=== PATIENT | female | born 1970 | race Caucasian/White ===

== ENCOUNTER 2022-04-23 09:05 | Emergency (ER) | payer OTHER ==
[~2022-04-23] VITALS: Ht 149.9 cm; Wt 66.0 kg
[2022-04-23 09:25] VITALS: BP 101/52
[2022-04-23] MEDS ORDERED: HYDR-3965 PO (10:41)
[2022-04-23] MEDS ORDERED: ONDA4TAB12 PO (10:41)
== END 2022-04-23 11:16 | disposition home or self-care (01) ==
LOC: ER 09:06
DX: M25.561 Pain in right knee (principal); M25.461 Effusion, right knee; W19.XXXA Unspecified fall, initial encounter; Y93.89 Activity, other specified; Y92.89 Other specified places as the place of occurrence of the external cause; Y99.8 Other external cause status
CPT/HCPCS: 73564; 99284; A6449

== ENCOUNTER 2022-08-19 09:34 | Inpatient (IN) | payer MEDICAID ==
[~2022-08-19] VITALS: Ht 149.9 cm; Wt 56.0 kg
[~2022-08-19 09:34] MED LIST: ARIP2TAB20 PO; BUSP10TA3 PO; CHOL100046 PO; CYAN-34 PO; ESCI-8 PO; GABA300C PO; LACT1CAP26 PO; QUET400T13 PO
[2022-08-19 10:04] LABS: BASOPHILS # (AUTO) 0.1 X10'3 (0-0.2); BASOPHILS % (AUTO) 0.5 % (0-1); EOSINOPHILS # (AUTO) 0.1 X10'3 (0-0.9); EOSINOPHILS % (AUTO) 0.5 % (0-6); HEMATOCRIT 41.3 % (35.0-45.0); LYMPHOCYTES # (AUTO) 3.2 X10'3 (1.1-4.8); LYMPHOCYTES % (AUTO) 25.9 % (21-51); MEAN CORPUSCULAR HEMOGLOBIN 32.9 PG (27.0-31.0); MEAN CORPUSCULAR HGB CONC 33.9 g/dL (33.0-36.5); MEAN CORPUSCULAR VOLUME 96.8 FL (78-98); MEAN PLATELET VOLUME 7.1 FL (7.4-10.4); MONOCYTES # (AUTO) 0.8 X10'3 (0-0.9); MONOCYTES % (AUTO) 6.7 % (2-12); NEUTROPHILS # (AUTO) 8.2 X10'3 (1.8-7.7); NEUTROPHILS % (AUTO) 66.4 % (42-75); PLATELET COUNT 596 X10'3 (140-440); RED BLOOD COUNT 4.27 X10'6 (4.20-5.60); RED CELL DISTRIBUTION WIDTH 13.6 % (11.5-14.5); WHITE BLOOD COUNT 12.3 X10'3 (4.5-11.0)
[2022-08-19 11:12] LABS: ALANINE AMINOTRANSFERASE 26 U/L (12-78); ALBUMIN 2.7 G/DL (3.4-5.0); ALBUMIN/GLOBULIN RATIO 0.6 (1.1-1.5); ALKALINE PHOSPHATASE 122 IU/L (46-116); ANION GAP 12 (8-16); ASPARTATE AMINO TRANSFERASE 24 U/L (10-37); BILIRUBIN,TOTAL 0.3 MG/DL (0.1-1.0); BLOOD UREA NITROGEN 7 MG/DL (7-18); BUN/CREATININE RATIO 4.6 (10.0-20.0); CALCIUM 8.7 MG/DL (8.5-10.1); CHLORIDE 102 MMOL/L (99-107); CREATININE 1.52 MG/DL (0.40-0.90); GLUCOSE 182 MG/DL (70-104); MAGNESIUM 1.8 MG/DL (1.5-2.4); SODIUM 139 MMOL/L (135-145); TOTAL CARBON DIOXIDE 24.7 MMOL/L (24-32); eGFR 36 ML/MIN
[2022-08-19 11:27] LABS: POTASSIUM 1.9 MMOL/L (3.5-5.1)
[2022-08-19] MEDS ORDERED: tamsulosin 0.4mg capsule PO ONE (11:40)
[2022-08-19] MEDS ORDERED: phenazopyridine 100mg tablet PO ONE (11:40)
[2022-08-19] MEDS ORDERED: potassium Cl 20 mEq SR tablet PO ONE (11:40)
[2022-08-19] MEDS ORDERED: potassium Cl 40MEQ/1/2NS 520ml 520 ML IV ONE (11:40)
[2022-08-19] MEDS ORDERED: acetaminophen 325mg tablet PO ONE (12:35)
[2022-08-19] MEDS ORDERED: morphine 2 MG/ML inj. syringe IV PRN ×2 (14:20)
[2022-08-19] MEDS ORDERED: magnesium Cl slow-release 64mg tablet PO PRN (14:20)
[2022-08-19] MEDS ORDERED: ondansetron/PF 4mg/2ml inj IV PRN (14:20)
[2022-08-19] MEDS ORDERED: HYDROcodone/acetaminophen 10/325mg tab PO PRN (14:20)
[2022-08-19] MEDS ORDERED: magnesium hydroxide 30ml (MOM) UD suspension PO PRN (14:20)
[2022-08-19] MEDS ORDERED: magnesium 4gm in 100ml NS 100 ML IV PRN (14:20)
[2022-08-19] MEDS ORDERED: magnesium 2GM in 50ml NS 50 ML IV PRN (14:20)
[2022-08-19] MEDS ORDERED: potassium Cl 40MEQ/1/2NS 520ml 520 ML IV PRN (14:20)
[2022-08-19] MEDS ORDERED: mag hydrox/Alum hydrox/simeth 30ml oral suspension PO PRN (14:20)
[2022-08-19] MEDS ORDERED: acetaminophen 325mg tablet PO PRN ×2 (14:20)
[2022-08-19] MEDS: potassium Cl 20mEq in NS 1,000 ML IV SCH (16:25)
--- NOTE | 2022-08-19 16:33 | NUR ---
AMBUALTED TO BR WITH STEADY GAIT,
[2022-08-19 17:00] LABS: CLARITY,URINE SLIGHTLY CLOUDY (Clear); COLOR,URINE YELLOW (Yellow); GLUCOSE, URINE NEGATIVE (Neg); KETONES,URINE NEGATIVE (Neg); LEUKOCYTE ESTERASE ,URINE NEGATIVE (Neg); NITRITES, URINE NEGATIVE (Neg); OCCULT BLOOD,URINE TRACE-INTACT (Neg); PH,URINE 6.5 (4.8-8.0); PROTEIN,URINE NEGATIVE (Neg); UROBILINOGEN,URINE 0.2 E.U/dL (0.2-1.0)
[2022-08-19] MEDS: potassium Cl 20 mEq SR tablet PO PRN ×2 (17:30→21:08)
[2022-08-19 17:38] LABS: UA COLLECTION TYPE NON-SPECIFIED
[2022-08-19 17:39] LABS: BACTERIA,URINE 1+ /HPF (Neg); HYALINE CASTS >30 /LPF (NEGATIVE); RBC,URINE 0-2 /HPF (0-2); SQUAMOUS EPITHELIAL CELL,UR MANY /LPF (FEW); WBC,URINE 0-4 /HPF (0-4)
--- NOTE | 2022-08-19 18:15 | NUR ---
TO CT VIA WC
[2022-08-19] MEDS: K and/or MAG REPLACEMENT MC SCH (20:00)
[2022-08-19] MEDS: docusate sod 100mg capsule PO SCH (20:00)
--- NOTE | 2022-08-19 20:43 | NUR ---
AMBULATED TO BR WITH STEADY GAIT
[2022-08-19] MEDS: HYDROcodone/acetaminophen 5mg/325mg tablet PO PRN (21:07)
[2022-08-19] MEDS: quetiapine 100mg tablet PO SCH (21:08)
[2022-08-19] MEDS: gabapentin 300mg capsule PO SCH (21:09)
[2022-08-20] MEDS: potassium Cl 20mEq in NS 1,000 ML IV SCH ×3 (00:20→20:16)
[2022-08-20] MEDS: HYDROcodone/acetaminophen 5mg/325mg tablet PO PRN ×3 (01:43→17:28)
--- NOTE | 2022-08-20 04:24 | NUR ---
Patient in room ED 1. I have received report from ARNALDO Plaza and had the opportunity to ask questions and assume patient care.
[2022-08-20 04:44] LABS: ALBUMIN 2.2 G/DL (3.4-5.0); ANION GAP 9 (8-16); BLOOD UREA NITROGEN 8 MG/DL (7-18); BUN/CREATININE RATIO 7.1 (10.0-20.0); CALCIUM 7.7 MG/DL (8.5-10.1); CHLORIDE 110 MMOL/L (99-107); CREATININE 1.12 MG/DL (0.40-0.90); GLUCOSE 82 MG/DL (70-104); POTASSIUM 3.2 MMOL/L (3.5-5.1); SODIUM 142 MMOL/L (135-145); TOTAL CARBON DIOXIDE 22.7 MMOL/L (24-32); eGFR 51 ML/MIN
[2022-08-20 04:53] VITALS: BP 108/67
--- NOTE | 2022-08-20 06:35 | NUR ---
Problems reprioritized. Patient report given, questions answered & plan of care reviewed with ARNALDO Castillo .
[2022-08-20] MEDS: potassium Cl 20 mEq SR tablet PO PRN ×3 (08:00→16:15)
[2022-08-20] MEDS: K and/or MAG REPLACEMENT MC SCH ×2 (08:00→20:00)
[2022-08-20] MEDS ORDERED: ESCITALOPRAM OXALATE 5 MG TABLET PO SCH (08:00)
[2022-08-20] MEDS: busPIRone 5mg tablet PO SCH (08:01)
[2022-08-20] MEDS: cyanocobalamin 500mcg tablet PO SCH (08:01)
[2022-08-20] MEDS: docusate sod 100mg capsule PO SCH ×2 (08:01→20:00)
[2022-08-20] MEDS: gabapentin 300mg capsule PO SCH (08:01)
[2022-08-20 10:00] VITALS: BP 104/53
[2022-08-20 10:06] LABS: C DIFF SPECIMEN=DIARRHEA? ACCEPTABLE; C DIFFICILE TOXINS A&B NEGATIVE (Neg)
[2022-08-20 12:26] LABS: BASOPHILS % (AUTO) 0 % (0-1); EOSINOPHILS # (AUTO) 0.4 X10'3 (0-0.9); EOSINOPHILS % (AUTO) 4.3 % (0-6); HEMATOCRIT 35.3 % (35.0-45.0); HEMOGLOBIN 11.4 g/dl (12.0-16.0); LYMPHOCYTES % (AUTO) 41.4 % (21-51); MEAN CORPUSCULAR HEMOGLOBIN 32.6 PG (27.0-31.0); MEAN CORPUSCULAR HGB CONC 32.2 g/dL (33.0-36.5); MEAN CORPUSCULAR VOLUME 101.2 FL (78-98); MEAN PLATELET VOLUME 7.5 FL (7.4-10.4); MONOCYTES # (AUTO) 0.4 X10'3 (0-0.9); MONOCYTES % (AUTO) 3.7 % (2-12); NEUTROPHILS # (AUTO) 4.9 X10'3 (1.8-7.7); NEUTROPHILS % (AUTO) 50.6 % (42-75); PLATELET COUNT 463 X10'3 (140-440); RED BLOOD COUNT 3.48 X10'6 (4.20-5.60); RED CELL DISTRIBUTION WIDTH 14.3 % (11.5-14.5); WHITE BLOOD COUNT 9.6 X10'3 (4.5-11.0)
[2022-08-20 14:00] VITALS: BP 110/60
[2022-08-20 18:00] VITALS: BP 104/53
[2022-08-20] MEDS: gabapentin 100mg capsule PO SCH (20:13)
[2022-08-20] MEDS: quetiapine 100mg tablet PO SCH (20:14)
[2022-08-20 21:11] LABS: CHLORIDE,URINE RANDOM 111 MEQ/L; SODIUM,URINE RANDOM 61 MEQ/L
[2022-08-20 22:00] VITALS: BP 112/48
[2022-08-21] MEDS: potassium Cl 20mEq in NS 1,000 ML IV SCH ×2 (00:12→08:15)
[2022-08-21 02:00] VITALS: BP 101/54
--- NOTE | 2022-08-21 05:59 | NUR ---
Problems reprioritized. Patient report given, questions answered & plan of care reviewed with Miley MCINTOSH.
--- NOTE | 2022-08-21 06:39 | NUR ---
I agree with the physical assessment
--- NOTE | 2022-08-21 06:39 | NUR ---
Problems reprioritized. Patient report given, questions answered & plan of care reviewed with ARNALDO Trent.
[2022-08-21 06:49] LABS: ANION GAP 9 (8-16); BLOOD UREA NITROGEN 8 MG/DL (7-18); BUN/CREATININE RATIO 8.6 (10.0-20.0); CALCIUM 7.5 MG/DL (8.5-10.1); CHLORIDE 115 MMOL/L (99-107); CREATININE 0.93 MG/DL (0.40-0.90); GLUCOSE 85 MG/DL (70-104); MAGNESIUM 1.7 MG/DL (1.5-2.4); POTASSIUM 3.6 MMOL/L (3.5-5.1); SODIUM 144 MMOL/L (135-145); TOTAL CARBON DIOXIDE 19.7 MMOL/L (24-32); eGFR 63 ML/MIN
[2022-08-21 07:00] VITALS: BP 113/53
--- NOTE | 2022-08-21 08:05 | NUR ---
24 hour urine collection in progress Addendum: 08/21/22 at 0806 by Miley Cardoso RN Amended: Links added.
[2022-08-21] MEDS: K and/or MAG REPLACEMENT MC SCH (08:12)
[2022-08-21] MEDS: cyanocobalamin 500mcg tablet PO SCH (08:15)
[2022-08-21] MEDS: docusate sod 100mg capsule PO SCH (08:15)
[2022-08-21] MEDS: gabapentin 100mg capsule PO SCH (08:15)
[2022-08-21] MEDS: busPIRone 5mg tablet PO SCH (08:15)
[2022-08-21] MEDS ORDERED: GABA-530 PO (09:58)
--- NOTE | 2022-08-21 10:54 | NUR ---
PAGER ID: [phone] MESSAGE: [phone] Manisha Saavedra Do you want the 24hour urine stopped and patient discharged? [phone] Miley
== END 2022-08-21 11:15 | disposition home or self-care (01) | DRG 425 ==
LOC: ER 09:34 → ED HOLD 14:22 → EDBEDREQ 22:45 → ORTHO 4S 08-20 04:44
PROVIDERS: ADMIT Internal Medicine; ATTEND Internal Medicine
DX: E87.6 Hypokalemia (principal); N17.9 Acute kidney failure, unspecified; F10.90 Alcohol use, unspecified, uncomplicated; F31.9 Bipolar disorder, unspecified; F41.9 Anxiety disorder, unspecified; G47.00 Insomnia, unspecified; K58.0 Irritable bowel syndrome with diarrhea; M79.7 Fibromyalgia; N18.9 Chronic kidney disease, unspecified; Z87.891 Personal history of nicotine dependence; Z90.49 Acquired absence of other specified parts of digestive tract; Z79.899 Other long term (current) drug therapy; Z83.3 Family history of diabetes mellitus; Z82.49 Family history of ischemic heart disease and other diseases of the circulatory system
CPT/HCPCS: 36415; 74176; 80048; 80053; 81001; 82436; 83735; 84132; 84133; 84300; 85025; 85651; 87081; 87324; 87449; 96365; 99285; G0378; J2405; J3480

== ENCOUNTER 2022-12-11 10:59 | Emergency (ER) | payer MEDICAID ==
[~2022-12-11] VITALS: Ht 152.4 cm; Wt 60.5 kg
[~2022-12-11 10:59] MED LIST changes: -ARIP2TAB20 PO; -ESCI-8 PO; +GABA-530 PO; -GABA300C PO; -LACT1CAP26 PO
[2022-12-11 11:19] VITALS: TEMP 97.1
[2022-12-11 11:58] LABS: BASOPHILS # (AUTO) 0.1 X10'3 (0-0.2); BASOPHILS % (AUTO) 0.4 % (0-1); EOSINOPHILS # (AUTO) 0.1 X10'3 (0-0.9); EOSINOPHILS % (AUTO) 0.4 % (0-6); HEMATOCRIT 45.6 % (35.0-45.0); HEMOGLOBIN 15.3 g/dl (12.0-16.0); LYMPHOCYTES # (AUTO) 3.1 X10'3 (1.1-4.8); LYMPHOCYTES % (AUTO) 25.1 % (21-51); MEAN CORPUSCULAR HEMOGLOBIN 32.3 PG (27.0-31.0); MEAN CORPUSCULAR HGB CONC 33.4 g/dL (33.0-36.5); MEAN CORPUSCULAR VOLUME 96.7 FL (78-98); MEAN PLATELET VOLUME 7.5 FL (7.4-10.4); MONOCYTES # (AUTO) 0.7 X10'3 (0-0.9); MONOCYTES % (AUTO) 5.4 % (2-12); NEUTROPHILS # (AUTO) 8.4 X10'3 (1.8-7.7); NEUTROPHILS % (AUTO) 68.7 % (42-75); PLATELET COUNT 521 X10'3 (140-440); RED BLOOD COUNT 4.72 X10'6 (4.20-5.60); RED CELL DISTRIBUTION WIDTH 13.1 % (11.5-14.5); WHITE BLOOD COUNT 12.2 X10'3 (4.5-11.0)
[2022-12-11 12:04] LABS: ALANINE AMINOTRANSFERASE 54 U/L (12-78); ALBUMIN/GLOBULIN RATIO 0.8 (1.1-1.5); ALKALINE PHOSPHATASE 138 IU/L (46-116); ANION GAP 15 (8-16); ASPARTATE AMINO TRANSFERASE 46 U/L (10-37); BILIRUBIN,TOTAL 0.3 MG/DL (0.1-1.0); BLOOD UREA NITROGEN 14 MG/DL (7-18); BUN/CREATININE RATIO 10.9 (10.0-20.0); CALCIUM 9.6 MG/DL (8.5-10.1); CHLORIDE 99 MMOL/L (99-107); CREATININE 1.29 MG/DL (0.40-0.90); GLUCOSE 155 MG/DL (70-104); MAGNESIUM 2.1 MG/DL (1.5-2.4); POTASSIUM 3.6 MMOL/L (3.5-5.1); SODIUM 133 MMOL/L (135-145); TOTAL CARBON DIOXIDE 18.7 MMOL/L (24-32); TOTAL PROTEIN 8.8 G/DL (6.4-8.2); eGFR 43 ML/MIN
[2022-12-11 12:39] LABS: CLARITY,URINE SLIGHTLY CLOUDY (Clear); COLOR,URINE YELLOW (Yellow); GLUCOSE, URINE NEGATIVE (Neg); KETONES,URINE NEGATIVE (Neg); LEUKOCYTE ESTERASE ,URINE NEGATIVE (Neg); NITRITES, URINE NEGATIVE (Neg); OCCULT BLOOD,URINE NEGATIVE (Neg); PH,URINE 5.5 (4.8-8.0); PROTEIN,URINE TRACE mg/dl (Neg); UROBILINOGEN,URINE 0.2 E.U/dL (0.2-1.0)
[2022-12-11 12:45] LABS: UA COLLECTION TYPE CLN CATCH MIDSTREAM
[2022-12-11 12:47] LABS: MUCUS STRANDS FEW /LPF (Neg); SQUAMOUS EPITHELIAL CELL,UR MODERATE /LPF (FEW)
[2022-12-11 12:49] LABS: CAL OXALATE CRYSTALS 1+ /HPF (NEGATIVE)
[2022-12-11 12:50] LABS: BACTERIA,URINE FEW /HPF (Neg); RBC,URINE NONE SEEN /HPF (0-2); WBC,URINE 0-4 /HPF (0-4)
[2022-12-11] MEDS ORDERED: normal saline 1000ml 1,000 ML IV ONE (14:40)
[2022-12-11] MEDS ORDERED: iohexol 300mg/ml 100ml inj. ONE (14:43)
[2022-12-11 15:02] LABS: LIPASE 53 U/L (73-393)
[2022-12-11 19:03] VITALS: BP 109/53; PULSE 94; RESP 16; O2SAT 96
== END 2022-12-11 19:05 | disposition home or self-care (01) ==
LOC: ER 10:59
DX: R53.1 Weakness (principal); R10.11 Right upper quadrant pain; R19.7 Diarrhea, unspecified; F41.9 Anxiety disorder, unspecified; Z90.49 Acquired absence of other specified parts of digestive tract; Z72.89 Other problems related to lifestyle; Z79.899 Other long term (current) drug therapy; Z87.19 Personal history of other diseases of the digestive system
CPT/HCPCS: 36415; 74177; 76700; 80053; 81001; 83690; 83735; 85025; 93005; 99285; J3490; J7030; Q9967

== ENCOUNTER 2024-09-01 06:38 | Emergency (ER) | payer MEDICAID ==
[~2024-09-01] VITALS: Ht 149.9 cm; Wt 68.1 kg
[2024-09-01 07:09] LABS: URINE HCG NEGATIVE (NEG)
[2024-09-01 07:10] LABS: BILIRUBIN,URINE NEGATIVE (Neg); CLARITY,URINE CLEAR (Clear); COLOR,URINE YELLOW (Yellow); GLUCOSE, URINE NEGATIVE (Neg); KETONES,URINE NEGATIVE (Neg); LEUKOCYTE ESTERASE ,URINE NEGATIVE (Neg); NITRITES, URINE NEGATIVE (Neg); OCCULT BLOOD,URINE NEGATIVE (Neg); PROTEIN,URINE NEGATIVE (Neg); UROBILINOGEN,URINE 0.2 E.U/dL (0.2-1.0)
[2024-09-01 07:13] LABS: UA COLLECTION TYPE CLN CATCH MIDSTREAM
[2024-09-01 07:20] LABS: BASOPHILS % (AUTO) 0.5 % (0-1); EOSINOPHILS # (AUTO) 0.1 X10'3 (0-0.9); EOSINOPHILS % (AUTO) 0.9 % (0-6); HEMATOCRIT 39.7 % (35.0-45.0); HEMOGLOBIN 13.3 g/dl (12.0-16.0); LYMPHOCYTES # (AUTO) 3.9 X10'3 (1.1-4.8); LYMPHOCYTES % (AUTO) 39.3 % (21-51); MEAN CORPUSCULAR HEMOGLOBIN 31.7 PG (27.0-31.0); MEAN CORPUSCULAR HGB CONC 33.4 g/dL (33.0-36.5); MEAN CORPUSCULAR VOLUME 94.9 FL (78-98); MEAN PLATELET VOLUME 6.5 FL (7.4-10.4); MONOCYTES # (AUTO) 0.4 X10'3 (0-0.9); MONOCYTES % (AUTO) 3.7 % (2-12); NEUTROPHILS # (AUTO) 5.5 X10'3 (1.8-7.7); NEUTROPHILS % (AUTO) 55.6 % (42-75); PLATELET COUNT 585 X10'3 (140-440); RED BLOOD COUNT 4.18 X10'6 (4.20-5.60); RED CELL DISTRIBUTION WIDTH 15.8 % (11.5-14.5)
[2024-09-01 07:34] LABS: ALANINE AMINOTRANSFERASE 23 U/L (12-78); ALBUMIN 3.1 G/DL (3.4-5.0); ALBUMIN/GLOBULIN RATIO 0.8 (1.1-1.5); ALKALINE PHOSPHATASE 105 IU/L (46-116); ANION GAP 12 (8-16); ASPARTATE AMINO TRANSFERASE 19 U/L (10-37); BILIRUBIN,TOTAL 0.3 MG/DL (0.1-1.0); BLOOD UREA NITROGEN 11 MG/DL (7-18); CALCIUM 8.4 MG/DL (8.5-10.1); CHLORIDE 108 MMOL/L (99-107); CREATININE 1.38 MG/DL (0.40-0.90); GLUCOSE 102 MG/DL (70-104); LIPASE 43 U/L (16-77); SODIUM 141 MMOL/L (135-145); TOTAL CARBON DIOXIDE 20.6 MMOL/L (24-32); TOTAL PROTEIN 6.8 G/DL (6.4-8.2); eCRCL 31 ML/MIN; eGFR 40 ML/MIN
--- NOTE | 2024-09-01 08:00 | Physician Documentation ---
History of Present Illness ~ Chief Complaint: Vomiting Stated Complaint: VOMITING Time Seen by MD: 07:46 Primary Medical Doctor: atul Mode of Arrival: POV HPI 53-year-old female presenting with nausea and vomiting that has been ongoing for the past five days. Patient states that she had multiple episodes of vomiting producing non bloody emesis on two of those days and the rest of the days she has just been nauseous. She also reports that is she saw her primary doctor and they informed her that her potassium was low. They gave her some potassium tablets as well as nausea medications but these have not worked. She states that she has been more constipated than usual but did have one bout of diarrhea several days ago. She endorses some diffuse abdominal pain due to the vomiting but otherwise denies any fever, chills or any other associated symptoms. Medication Reconciliation Allergies: Coded Allergies: No Known Allergies (Unverified , 12/11/22) Scheduled Buspirone HCl (Buspirone HCl), 1 TAB PO QAM, (Reported) Cholecalciferol (Vitamin D3) (Vitamin D3), 1 CAP PO DAILY, (Reported) Cyanocobalamin (Vitamin B-12) (Vitamin B-12), 1 CAP PO DAILY, (Reported) Gabapentin (Gabapentin), 100 MG PO BID Quetiapine Fumarate (Quetiapine Fumarate), 1 TAB PO HS, (Reported) Scheduled PRN ONDANSETRON ODT 4mg tablet (Ondansetron Odt), 1 TAB PO Q6H PRN PRN for nausea/vomiting Past Medical History Past Medical History: C-Diff, *PSYCH*, Anxiety, Bipolar, Depression Past Surgical History: abdominal surgery, appendectomy, other Alcohol Use: Occasionally Drug Use: none Lives with: Alone Lives In: Home Review of Systems All Other Systems at this time: Reviewed and Negative Physical Exam Vital Signs: Temperature: 97.8, Source: Oral, Heart Rate: 124, Respiratory Rate: 18, BP: 132/75, Pulse Oximetry: 100, Weight: 68.100 Oxygen Flow Rate: 0 Physical Exam I have reviewed the triage vitals. CONST: Well developed and well nourished. In no acute distress HENT: Head Atraumatic EYES: Pupils are equal, round and reactive to light. Normal conjunctiva NECK: Normal range of motion. Supple. CARDIO: Normal rate and regular rhythm. No murmurs, rubs, or gallops. S1, S2. PULM/CHEST: No respiratory distress. Lungs clear to auscultation. No wheeze ABD: Soft and nontender. Nondistended. Bowel sounds normal. No guarding. : Exam deferred MSK: No edema. No deformity. NEURO: Alert and oriented to person, place and time. Moving all extremities SKIN: Warm and dry. PSYCH: Normal mood and affect. Good eye contact. Progress Results/Orders Results/Orders Orders - LATRELL MAYA MD Ct Abdomen Pelvis (09/01/24 10:42) Completed Orders - LATRELL MAYA MD Urinalysis, Cult If Indicated (09/01/24 06:46) Hcg, Ur Ql (09/01/24 06:46) Cbc/Diff (09/01/24 06:46) BMP (09/01/24 06:46) Lipase (09/01/24 06:46) CMP (09/01/24 06:46) Potassium Cl Sr Tablet (K-Dur Tablet) (09/01/24 07:46) Normal Saline 1000ml (Sodium Chloride 10 (09/01/24 07:50) Potassium Cl 10meq/100ml Bag (Potassium (09/01/24 07:50) MG (09/01/24 07:11) Ondansetron Inj. (Zofran 4mg/2ml Vial) (09/01/24 08:00) Acetaminophen 325mg Tablet (Tylenol Tabl (09/01/24 08:00) Metoclopramide Inj (Reglan Inj) (09/01/24 10:15) Ct Abdomen Pelvis (09/01/24 10:42) CMP (09/01/24 10:45) Normal Saline 1000ml (Sodium Chloride 10 (09/01/24 12:10) Medications Received in ER Medications (Trade) Dose Ordered Sig/Vandana Route PRN Reason Start Time Stop Time Status Last Admin Dose Admin Sodium Chloride 1,000 ml @ 1,000 mls/hr ONCE ONCE IV 09/01/24 12:10 09/01/24 13:09 DC 09/01/24 12:50 1,000 MLS/HR Vital Signs 09/01/24 09/01/24 09/01/24 09/01/24 06:42 07:31 08:30 08:40 Temp 97.8 97.8 Pulse 124 112 102 Resp 18 16 16 B/P (MAP) 132/75 121/61 (81) Pulse Ox 100 99 98 O2 Flow Rate 0 0 0 09/01/24 09/01/24 09/01/24 10:47 12:50 15:32 Temp 97.8 97.8 97.8 Pulse 107 104 100 Resp 14 14 16 B/P (MAP) 123/63 (83) 121/72 (88) 124/70 Pulse Ox 99 100 96 O2 Flow Rate 0 0 Laboratory Tests Test 09/01/24 06:47 09/01/24 07:11 09/01/24 11:02 Urine Specimen Description Cln catch midstream Urine Color Yellow Urine Clarity Clear Urine pH 6.0 Urine Specific [place] 1.010 Urine Protein Negative Urine Glucose (UA) Negative Urine Ketones Negative Urine Occult Blood Negative Urine Nitrite Negative Urine Bilirubin Negative Urine Urobilinogen 0.2 Urine Leukocyte Esterase Negative Urine Culture Indicated Not ind Volume Urine Centrifuged 10 ml Urine HCG, Qualitative Negative Urine Comment White Blood Count 10.0 Red Blood Count 4.18 L Hemoglobin 13.3 Hematocrit 39.7 Mean Corpuscular Volume 94.9 Mean Corpuscular Hemoglobin 31.7 H Mean Corpuscular Hemoglobin Concent 33.4 Red Cell Distribution Width 15.8 H Platelet Count 585 H Mean Platelet Volume 6.5 L Neutrophils (%) (Auto) 55.6 Lymphocytes (%) (Auto) 39.3 Monocytes (%) (Auto) 3.7 Eosinophils (%) (Auto) 0.9 Basophils (%) (Auto) 0.5 Neutrophils # (Auto) 5.5 Lymphocytes # (Auto) 3.9 Monocytes # (Auto) 0.4 Eosinophils # (Auto) 0.1 Basophils # (Auto) 0.0 CBC Comment Sodium Level 141 143 Potassium Level 3.0 *L 3.4 L Chloride Level 108 H 110 H Carbon Dioxide Level 20.6 L 19.9 L Anion Gap 12 13 Blood Urea Nitrogen 11 10 Creatinine 1.38 H 1.25 H Estimated GFR/1.73 m2 40 44 BUN/Creatinine Ratio 8.0 L 8.0 L Glucose Level 102 82 Calcium Level 8.4 L 8.2 L Magnesium Level 1.9 Total Bilirubin 0.3 0.3 Aspartate Amino Transf (AST/SGOT) 19 16 Alanine Aminotransferase (ALT/SGPT) 23 19 Alkaline Phosphatase 105 94 Total Protein 6.8 6.2 L Albumin 3.1 L 2.8 L Globulin 3.7 3.4 Albumin/Globulin Ratio 0.8 L 0.8 L Lipase 43 Chemistry Comments EKG/XRAY/CT/US/VASC/MRI EKG : Additional Comment 53-year-old female with a EKG as interpreted by me shows sinus tachycardia with a rate of 118 beats per minute, no ischemia, no ST changes, normal axis CT : Impression CLINICAL INFORMATION: Vomiting. Rule out small-bowel obstruction. TECHNIQUE: Axial CT images of the abdomen and pelvis were obtained without IV contrast. Coronal and sagittal reformatted images were obtained, reviewed, and stored. Evaluation of the parenchymal organs is limited without IV contrast. Evaluation of the bowel and mesentery is limited without oral contrast. All CT scans at this medical facility are performed using dose modulation techniques as appropriate to a performed exam including the following: Automated exposure control was utilized; adjustment of the MA and/or KV according to patient size; and use of iterative reconstruction technique. CTDIvol = 8.93 mGy DLP = 432.88 mGy-cm COMPARISON: CT ABDOMEN PELVIS on DOS: 08/19/22 FINDINGS: Lung bases: Lung bases are clear. Liver: There are cysts in the liver. Biliary: No calcified gallstones or biliary ductal dilatation. Spleen: Unremarkable. Pancreas: Grossly unremarkable in its noncontrast enhanced appearance. Adrenal glands: Unremarkable. No mass. Kidneys: No hydronephrosis. 3 mm nonobstructing calculus in the inferior pole of the left kidney. 1 mm nonobstructing calculus in the inferior pole of the right kidney. Aorta/Vascular: Moderate atherosclerotic calcification. No abdominal aortic aneurysm. Retroperitoneum: No mass or lymphadenopathy. Bowel/mesentery: Mildly distended fluid-filled small bowel loops. No small bowel obstruction. There are postsurgical changes in the right upper abdomen with enterocolonic anastomosis. Moderate stool in the colon. Pelvic organs: Grossly unremarkable. Bladder: Mildly to moderately distended bladder. Abdominal wall: No mass or hernia. Bones: No acute fracture or suspicious intraosseous lesion. IMPRESSION: 1. Nonspecific nondilated fluid-filled small bowel loops. Findings may be seen with ileus or enteritis in the appropriate clinical setting. No small bowel obstruction. 2. Nonobstructing bilateral renal calculi. No hydronephrosis or obstructing calculi. 3. Additional findings as detailed above. Medical Decision Making Additional Comments 53-year-old female presenting with acute onset nausea and vomiting with resultant hypokalemia. The patient's and she was very nauseous and weak. She was medicated with 2 L of IV normal saline. Her potassium level was 3.0 and she was given 40 mEq oral potassium as well as 10 mEq of IV potassium chloride. Patient was also given IV Zofran 4 mg and IV Reglan 10 mg. After medication the patient was markedly improved. On recheck her potassium was 3.4. On reasses sment the patient looks well and her vitals normalized aside from a very mild tachycardia. At this point in time the patient is stable and safe for discharge home. I will prescribe her some Zofran for symptomatic treatment. Advised the patient to drink plenty of fluids and take the medication as needed. Monitor symptoms for improvement and resolution. Follow up closely with PCP in the next 2-3 days and return to the ED with any acutely worsening symptoms. Departure Disposition: 01 HOME / SELF CARE / HOMELESS Impression: Primary Impression: Viral gastroenteritis Additional Impression: Hypokalemia Condition: Improved Referrals: NO PRIMARY CARE PROVIDER (PCP) Prescriptions ONDANSETRON ODT 4mg tablet (ONDANSETRON ODT) 4 Mg Tab.rapdis 1 TAB PO Q6H PRN PRN for nausea/vomiting for 4 Days, #16 TAB 0 Refills Prov: LATRELL MAYA MD 09/01/24 Signature Scribe Signature: 1 Attestation: 1 LATRELL MAYA MD Sep 01, 2024 08:00
[2024-09-01 08:02] LABS: MAGNESIUM 1.9 MG/DL (1.5-2.4)
[2024-09-01] MEDS: potassium Cl 20 mEq SR tablet PO STA (08:22)
[2024-09-01] MEDS: normal saline 1000ml 1,000 ML IV ONE ×2 (08:22→12:50)
[2024-09-01] MEDS: potassium CL 10mEq/100ml bag 100 ML IV SCH (08:22)
[2024-09-01] MEDS: ondansetron/PF 4mg/2ml inj IV ONE (08:36)
[2024-09-01] MEDS: acetaminophen 325mg tablet PO ONE (08:36)
[2024-09-01] MEDS: metoclopramide 5 mg/ml inj IV ONE (10:43)
--- NOTE | 2024-09-01 11:05 | RADIOLOGY REPORT ---
CLINICAL INFORMATION: Vomiting. Rule out small-bowel obstruction. TECHNIQUE: Axial CT images of the abdomen and pelvis were obtained without IV contrast. Coronal and s agittal reformatted images were obtained, reviewed, and stored. Evaluation of the parenchymal organs is limited without IV contrast. Evaluation of the bowel and mesentery is limited without oral contras t. All CT scans at this medical facility are performed using dose modulation techniques as appropriat e to a performed exam including the following: Automated exposure control was utilized; adjustment of the MA and/or KV according to patient size; and use of iterative reconstruction technique. CTDIvol = 8.93 mGy DLP = 432.88 mGy-cm COMPARISON: CT ABDOMEN PELVIS on DOS: 08/19/22 FINDINGS: Lung bases: Lung bases are clear. Liver: There are cysts in the liver. Biliary: No calcified gallstones or biliary ductal dilatation. Spleen: Unremarkable. Pancreas: Grossly unremarkable in its noncontrast enhanced appearance. Adrenal glands: Unremarkable. No mass. Kidneys: No hydronephrosis. 3 mm nonobstructing calculus in the inferior pole of the left kidney. 1 m m nonobstructing calculus in the inferior pole of the right kidney. Aorta/Vascular: Moderate atherosclerotic calcification. No abdominal aortic aneurysm. Retroperitoneum: No mass or lymphadenopathy. Bowel/mesentery: Mildly distended fluid-filled small bowel loops. No small bowel obstruction. There a re postsurgical changes in the right upper abdomen with enterocolonic anastomosis. Moderate stool in the colon. Pelvic organs: Grossly unremarkable. Bladder: Mildly to moderately distended bladder. Abdominal wall: No mass or hernia. Bones: No acute fracture or suspicious intraosseous lesion. IMPRESSION: 1. Nonspecific nondilated fluid-filled small bowel loops. Findings may be seen with ileus or enteriti s in the appropriate clinical setting. No small bowel obstruction. 2. Nonobstructing bilateral renal calculi. No hydronephrosis or obstructing calculi. 3. Additional findings as detailed above.
[2024-09-01 11:58] LABS: ALANINE AMINOTRANSFERASE 19 U/L (12-78); ALBUMIN 2.8 G/DL (3.4-5.0); ALBUMIN/GLOBULIN RATIO 0.8 (1.1-1.5); ALKALINE PHOSPHATASE 94 IU/L (46-116); ANION GAP 13 (8-16); ASPARTATE AMINO TRANSFERASE 16 U/L (10-37); BILIRUBIN,TOTAL 0.3 MG/DL (0.1-1.0); BLOOD UREA NITROGEN 10 MG/DL (7-18); CALCIUM 8.2 MG/DL (8.5-10.1); CHLORIDE 110 MMOL/L (99-107); CREATININE 1.25 MG/DL (0.40-0.90); GLUCOSE 82 MG/DL (70-104); POTASSIUM 3.4 MMOL/L (3.5-5.1); SODIUM 143 MMOL/L (135-145); TOTAL CARBON DIOXIDE 19.9 MMOL/L (24-32); TOTAL PROTEIN 6.2 G/DL (6.4-8.2); eCRCL 35 ML/MIN; eGFR 44 ML/MIN
[2024-09-01] MEDS ORDERED: ONDA-243 PO (14:46)
[2024-09-01 15:32] VITALS: BP 124/70; PULSE 100; RESP 16; TEMP 97.8; O2SAT 96
== END 2024-09-01 15:38 | disposition home or self-care (01) ==
LOC: ER 06:39
DX: A08.4 Viral intestinal infection, unspecified (principal); E87.6 Hypokalemia; F31.9 Bipolar disorder, unspecified; F41.9 Anxiety disorder, unspecified; Z90.49 Acquired absence of other specified parts of digestive tract
CPT/HCPCS: 36415; 74176; 80053; 81003; 81025; 83690; 83735; 85025; 96361; 96365; 96375; 99285; J2405; J2765; J3480; J7030